=== PATIENT | female | born 1960 | race Caucasian/White ===

== ENCOUNTER → 2021-11-04 | Outpatient (CLI) | payer BC | LOC: MC.RAD 14:05 | DX: Z12.31 Encounter for screening mammogram for malignant neoplasm of breast (principal); Z98.82 Breast implant status ==

== ENCOUNTER → 2023-04-18 | Outpatient (CLI) | payer BC | LOC: CANSCHCLI → MC.RAD 12:46 | DX: Z12.31 Encounter for screening mammogram for malignant neoplasm of breast (principal) ==

== ENCOUNTER → 2024-04-19 | Outpatient (CLI) | payer BC | LOC: MC.RAD 07:25 | DX: Z12.31 Encounter for screening mammogram for malignant neoplasm of breast (principal); Z98.82 Breast implant status ==